=== PATIENT | male | born 1995 | race Caucasian/White ===

== ENCOUNTER 2021-02-21 07:38 | Emergency (ER) | payer SELFPAY ==
[~2021-02-21] VITALS: Ht 172.7 cm; Wt 68.0 kg
[2021-02-21] MEDS: IV NORMAL SALINE 1000 ML BAG IV ONE (07:51)
[2021-02-21 07:59] LABS: HEMATOCRIT 45.7 % (36.7-47.1); MEAN CORPUSCULAR HEMOGLOBIN 33.2 uug (23.8-33.4); MEAN CORPUSCULAR VOLUME 96.5 fL (73.0-96.2); PLATELET COUNT (AUTO) 254 K/uL (152-348)
[2021-02-21 08:01] LABS: CREATININE 1.2 mg/dL (0.6-1.3); POTASSIUM 3.3 mmol/L (3.5-5.1)
[2021-02-21 08:07] LABS: BILIRUBIN,DIRECT 0.1 mg/dL (0.0-0.2); BILIRUBIN,TOTAL 0.5 mg/dL (0.2-1.0); TOTAL PROTEIN, SERUM 8.1 g/dL (6.4-8.2)
--- NOTE | 2021-02-21 09:10 | NUR ---
PT WAS EVALUATED BY DR DÍAZ. PT WAS D/C'd TO HOME. D/C INSTRUCTIONS GIVEN TO THE PT BY DR DÍAZ. GAIT IS STABLE. NO S/S OF DISTRESS AT THE TIME OF DISCHARGE.
[2021-02-21 09:12] VITALS: BP 132/78
== END 2021-02-21 09:14 | disposition home or self-care (01) ==
LOC: ER 07:38
DX: T40.2X1A Poisoning by other opioids, accidental (unintentional), initial encounter (principal); J96.90 Respiratory failure, unspecified, unspecified whether with hypoxia or hypercapnia; Y92.512 Supermarket, store or market as the place of occurrence of the external cause; R00.0 Tachycardia, unspecified
CPT/HCPCS: 36415; 85025; 93005; A4663; J7030